=== PATIENT | female | born 1945 | race Caucasian/White ===

== ENCOUNTER → 2017-04-26 | Outpatient (CLI) | payer MEDICARE, OTHER ==
[~2017-04-26] MED LIST: NITR25OR2 PO; POTA40LI3 PO; TRIA1TAB5 PO
--- NOTE | 2017-04-29 13:46 | RAD ---
DATE: 04/26/2017 EXAM: MAMMO CRISS SCREENING BILATERAL HISTORY: Routine screening. COMPARISON: 09/15/2014 This study was interpreted with the benefit of Computerized Aided Detection (CAD ). FINDINGS: There is a slightly rounded parenchymal density in the superior right breast posterior depth, best seen on the MLO view. This appears to be medially located on the CC view. Additional views are recommended. There are benign calcifications bilaterally. The left breast is unremarkable. Breast Density: SCATTERED The breast parenchyma shows scattered fibroglandular densities. Breast parenchyma level B. IMPRESSION: Right breast density. Additional views including spot compression and ML views are recommended. BI-RADS CATEGORY: 0 INCOMPLETE: NEEDS ADDITIONAL IMAGING EVALUATION AND/OR PRIOR MAMMOGRAMS FOR COMPARISON. RECOMMENDED FOLLOW-UP: PQRS compliance statement: Patient information was entered into a reminder system with a target due date for the next mammogram. Mammography is a sensitive method for finding small breast cancers, but it does not detect them all and is not a substitute for careful clinical examination. A negative mammogram does not negate a clinically suspicious finding and should not result in delay in biopsying a clinically suspicious abnormality. "Our facility is accredited by the [employer] Mammography [employer]." MTDD
== END | disposition home or self-care (01) ==
LOC: MAMMO 09:17
PROVIDERS: ATTEND Obstetrics & Gynecology
DX: Z12.31 Encounter for screening mammogram for malignant neoplasm of breast (principal)
CPT/HCPCS: 77063; G0202; 77067

== ENCOUNTER → 2017-05-03 | Outpatient (CLI) | payer MEDICARE, OTHER ==
--- NOTE | 2017-05-03 12:55 | RAD ---
DATE: 05/03/2017. EXAM: DIGITAL DIAGNOSTIC RT, ULTRASOUND BREAST RIGHT. HISTORY: Density on mammographic screening. Additional views and ultrasound are requested. COMPARISON: 04/26/2017. This study was interpreted with the benefit of Computerized Aided Detection (CAD). FINDINGS: The breast parenchyma shows scattered fibroglandular densities. Breast parenchyma level B.. A microlobulated nodule superomedially on the right persists on spot compression. It is not as well seen on the CC view. Sonography of the right superior breast was also performed. At the 1:00 position, there is a hypoechoic mass measuring 11 x 10 x 8 mm. It has one mildly indistinct border and possibly an internal calcification. Flow is noted along its periphery. Images of the right exit reveal no pathologically enlarged lymph nodes or cortical thickening. BI-RADS CATEGORY: 4 SUSPICIOUS ABNORMALITY-BIOPSY SHOULD BE CONSIDERED. RECOMMENDED FOLLOW-UP: BIO BIOPSY RECOMMENDED. Recommend ultrasound-guided biopsy of the new solid nodule at the right 1:00 position. PQRS compliance statement: Patient information was entered into a reminder system with a target due date (now) for the next mammogram. Mammography is a sensitive method for finding small breast cancers, but it does not detect them all and is not a substitute for careful clinical examination. A negative mammogram does not negate a clinically suspicious finding and should not result in delay in biopsying a clinically suspicious abnormality. "Our facility is accredited by the [employer] Mammography [employer]."
== END | disposition home or self-care (01) ==
LOC: MAMMO 09:21
PROVIDERS: ATTEND Obstetrics & Gynecology
DX: N63.0 Unspecified lump in unspecified breast (principal)
CPT/HCPCS: 76641; G0206; 77065

== ENCOUNTER → 2018-07-30 | Outpatient (CLI) | payer MEDICARE, OTHER ==
--- NOTE | 2018-07-30 15:32 | RAD ---
EXAM: MAMMO CRISS DIAG LT HISTORY: History of right mastectomy COMPARISON: 04/26/2017 This study was interpreted with the benefit of Computerized Aided Detection (CAD). FINDINGS: Breast Density: SCATTERED The breast parenchyma shows scattered fibroglandular densities. Breast parenchyma level B. There are no dominant suspicious masses, suspicious microcalcifications or evidence of architectural distortion. IMPRESSION: Negative mammogram BI-RADS CATEGORY: 1 NEGATIVE RECOMMENDED FOLLOW-UP: 12M 12 MONTH FOLLOW-UP PQRS compliance statement: Patient information was entered into a reminder system with a target due date 07/30/2019 for the next mammogram. Mammography is a sensitive method for finding small breast cancers, but it does not detect them all and is not a substitute for careful clinical examination. A negative mammogram does not negate a clinically suspicious finding and should not result in delay in biopsying a clinically suspicious abnormality. "Our facility is accredited by the [employer] Mammography [employer]."
== END | disposition home or self-care (01) ==
LOC: MAMMO 14:50
PROVIDERS: ATTEND Obstetrics & Gynecology
DX: Z08 Encounter for follow-up examination after completed treatment for malignant neoplasm (principal); Z85.3 Personal history of malignant neoplasm of breast
CPT/HCPCS: 77065; G0279; 77061

== ENCOUNTER → 2019-08-10 | Outpatient (CLI) | payer MEDICARE, OTHER ==
--- NOTE | 2019-08-10 13:46 | RAD ---
DATE: 08/10/2019 EXAM: MAMMO CRISS DIAG LT HISTORY: Right breast cancer. No current symptoms. COMPARISON: 09/11/2013, 09/15/2014, 04/26/2017, 07/30/2018 mammographic images This study was interpreted with the benefit of Computerized Aided Detection (CAD). Breast Density: HETERO The breast parenchyma is heterogenously dense, which could reduce sensitivity of mammography. Breast parenchyma level C. FINDINGS: No suspicious calcification, mass, or distortion. IMPRESSION: Stable BI-RADS CATEGORY: 1 NEGATIVE RECOMMENDED FOLLOW-UP: 12M 12 MONTH FOLLOW-UP PQRS compliance statement: Patient information was entered into a reminder system with a target due date for the next mammogram. Mammography is a sensitive method for finding small breast cancers, but it does not detect them all and is not a substitute for careful clinical examination. A negative mammogram does not negate a clinically suspicious finding and should not result in delay in biopsying a clinically suspicious abnormality. "Our facility is accredited by the [employer] Mammography [employer]."
== END | disposition home or self-care (01) ==
LOC: MAMMO 13:12
PROVIDERS: ATTEND Obstetrics & Gynecology
DX: C50.911 Malignant neoplasm of unspecified site of right female breast (principal); R92.2 Inconclusive mammogram
CPT/HCPCS: 77065; G0279; 77061

== ENCOUNTER → 2020-08-30 | Outpatient (CLI) | payer OTHER ==
[~2020-08-30] MED LIST changes: -NITR25OR2 PO; +NITR25OR6 PO
--- NOTE | 2020-08-30 14:03 | RAD ---
EXAM: DUAL ENERGY X-RAY ABSORPTIOMETRY (DEXA). HISTORY: Postmenopausal screening. Breast cancer. FINDINGS: The lowest measured T-score is 0.7 in the right hip, based on a bone mineral density of 1.0 42 g/cm^2. Refer to the worksheets for full detail. No comparison examinations are available. IMPRESSION: 1. Normal. Bone mineral density yields a T-score of -1.0 or greater. Fracture risk is low. 2. FRAX report: Not calculated. METHODOLOGY: Dual energy x-ray absorptiometry was performed to measure bone mineral density. The foll owing analysis is based on the 2019 Official Positions of the International Society for Clinical Dens itometry: Measurements of the hips and the average of L1-L4 are preferred. When the spine and/or hip cannot be feasibly measured or interpreted, or in the setting of hyperparathyroidism, distal radial bone minera l density may be measured. The lumbar spine T-score is based on the average bone mineral density of L1-L4. In the setting of art ifact or anatomic abnormality, some lumbar levels may be excluded, and the remaining levels used for calculation. A single lumbar level is not used for diagnosis, and if only a single level is available for assessment, another anatomic site will be used to assign a diagnosis. The hip T-score is based on the bone mineral density measurement of the femoral neck or total proxima l femur of either side, whichever is lowest. Bilateral mean values are not used for diagnosis. The forearm T-score is derived from 33% of the distal radius of the nondominant forearm. Electronically signed by: Debi Landaverde MD (08/30/2020 2:01 PM) [id number]
--- NOTE | 2020-08-30 15:56 | RAD ---
EXAM: Left breast diagnostic mammogram with tomosynthesis. HISTORY: 74-year-old female with a history of right breast cancer, status post right mastectomy, pres ents for annual mammography. TECHNIQUE: Full-field digital craniocaudal and mediolateral oblique 2D and 3D tomosynthesis images of the left breast are obtained for evaluation. Computer aided detection was applied. COMPARISON: 08/10/2019 and 07/30/2018 and 05/03/2017 and 04/26/2017 BREAST PARENCHYMAL DENSITY: Level B - Scattered fibroglandular densities. FINDINGS: There is no new suspicious mass, microcalcification or region of architectural distortion. There are stable areas of asymmetry within the left breast. There is a benign calcification within th e left breast. IMPRESSION: BI-RADS Category 2: Benign finding(s). RECOMMENDATION: Annual mammography is recommended. If your mammogram demonstrates that you have dense breast tissue, which could hide abnormalities, and if you have other risk factors for breast cancer that have been identified, you might benefit from s upplemental screening tests that may be suggested by your ordering physician. Dense breast tissue, i n and of itself, is a relatively common condition. This information is not provided to cause undue c oncern, but rather to raise your awareness and to promote discussion with your physician regarding th e presence of other risk factors, in addition to dense breast tissue. A report of your mammography re sults will be sent to you and your physician. You should contact your physician if you have any ques tions or concerns regarding this report. Mammography is a sensitive method for finding small breast cancers, but it does not detect them all a nd is not a substitute for careful clinical examination. A negative mammogram does not negate a clin ically suspicious finding and should not result in delay in biopsying a clinically suspicious abnorma lity. PQRS compliance statement - Patient information was entered into a reminder system with a target due date for the next mammogram. "Our facility is accredited by the [employer] Mammography [employer]." Electronically signed by: Debi Landaverde MD (08/30/2020 3:54 PM) [id number]
== END ==
LOC: MAMMO 12:42
PROVIDERS: ATTEND Family Medicine
DX: Z13.820 Encounter for screening for osteoporosis (principal); N64.89 Other specified disorders of breast; R92.1 Mammographic calcification found on diagnostic imaging of breast; Z78.0 Asymptomatic menopausal state; Z85.3 Personal history of malignant neoplasm of breast
CPT/HCPCS: 77065; 77080

== ENCOUNTER → 2021-10-13 | Outpatient (CLI) | payer OTHER ==
--- NOTE | 2021-10-13 15:50 | RAD ---
Study: MG Digital Screening Unilateral W/christiane History: Routine screening. History of right breast malignancy status post right mastectomy. Comparison: Most recently on 08/30/2020. Technique: Routine 2D and 3D tomosynthesis digital mammogram views were obtained of the left breast. Interpretation was assisted with the use of computer-aided detection. Findings: Breast Tissue Density B : There are scattered areas of fibroglandular density. There are no dominant masses, suspicious microcalcifications, or architectural distortion. A few asy mmetries are no different. IMPRESSION: No mammographic evidence of malignancy. Recommend routine screening mammography in one year. BI-RADS category 2: Benign findings. Patient information is entered into the reminder system with a target due date for the next screening mammogram. "Our facility is accredited by the [employer] Mammography [employer]." Electronically signed by: SONJA JACKSON MD (10/13/2021 3:48 PM) [id number]
== END ==
LOC: MAMMO 12:56
PROVIDERS: ATTEND Internal Medicine Hematology & Oncology
DX: Z12.31 Encounter for screening mammogram for malignant neoplasm of breast (principal)
CPT/HCPCS: 77063; 77067